=== PATIENT | male | born 1970 | race Caucasian/White ===

== ENCOUNTER 2020-03-09 19:38 | Inpatient (IN) | payer SELFPAY ==
[~2020-03-09] VITALS: Ht 185.4 cm; Wt 106.1 kg
[2020-03-09 20:05] VITALS: Ht 185.4 cm; Wt 106.1 kg
--- NOTE | 2020-03-09 20:30 | NUR ---
PT NOTED TO BE IN LOBBY. PT INSTRUCTED TO GO BACK OUT TO [facility] FOR TRX.
--- NOTE | 2020-03-09 21:00 | NUR ---
PT BROUGHT BACK TO [facility] AFTER STILL BEING FOUND IN LOBBY AND EXPLAINED TO PT AGAIN TO STAY IN [facility] FOR HIS TRX/ORDERS.
--- NOTE | 2020-03-09 23:00 | NUR ---
PT REMINDED TO STAY IN [facility] FOR SAFETY. PT KEEPS GETTING UP AND LEAVING/WANDERING AROUND AND HAVING TO BE REDIRECTED AND REEDUCATED ON PLAN OF CARE.
--- NOTE | 2020-03-09 23:35 | NUR ---
PT OUT TO CT SCAN
--- NOTE | 2020-03-09 23:55 | NUR ---
PT NOTED BY STUART HERRERA TO BE TAKING OFF CLOTHES WITH NO REASON. PT PLACED ON [facility] BED WITH SHEET FOR PRIVACY.
--- NOTE | 2020-03-10 00:44 | NUR ---
LAB AT PATIENT BEDSIDE
--- NOTE | 2020-03-10 01:08 | NUR ---
RT AT CHAIRSIDE
[2020-03-10 01:37] LABS: AMPHETAMINE QUAL UR NONE DETECTED (See below)
[2020-03-10 01:39] LABS: BASOPHIL % 0.4 % (0.2-1.5); PLATELET COUNT 244 x10^3mcL (152-348); RED CELL DISTRIBUTION WIDTH 11.9 % (12.1-16.2)
[2020-03-10 01:41] LABS: CHOLESTEROL/HDL RATIO 4.2
[2020-03-10 01:42] LABS: rbc morphology (normal/abnorm) NORMAL (NORMAL)
[2020-03-10 01:55] LABS: ALBUMIN 3.5 g/dL (3.4-5.0); ALKALINE PHOSPHATASE 91 U/L (46-116); ALT/SGPT 83 U/L (16-63); AST/SGOT 65 U/L (15-37); BILIRUBIN TOTAL 1.13 mg/dL (0.20-1.00); C REACTIVE PROTEIN 2.2 mg/dL (<=0.9); CALCIUM 8.6 mg/dL (8.5-10.1); CARBON DIOXIDE 25.8 mmol/L (21-32); CHLORIDE SERUM 99 mmol/L (98-107); CREATININE SERUM 0.9 mg/dL (0.7-1.3); GFR1 > 60 mL/min; GLUCOSE SERUM 105 mg/dL (74-106); LACTIC DEHYDROGENASE (LDH) 233 U/L (100-190); SODIUM SERUM 135 mmol/L (136-145); TOTAL PROTEIN, SERUM 7.6 g/dL (6.4-8.2)
--- NOTE | 2020-03-10 02:17 | NUR ---
FIRST ENCOUNTER WITH PATIENT. PT BROUGHT IN FROM [facility] FOR C/C OF DIZZINESS, HBP. PER PATIENT HAS BODY ACHES, COUGH, FATIGUE. PT IS A&OX4 AUTHORIZED ME TO SPEAK TO SON OFE. PT DENIES CHEST PAIN,SOB,BLURRED VISION. PT PLACED ON FULL CM. CALL LIGHT WITHIN REACH.
--- NOTE | 2020-03-10 03:09 | NUR ---
PROVIDED UPDATE TO PT'S SON, DURGA ELLIS. SON STATED HE IS WAITING IN 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 SON REQUESTED TO HAVE ADMISSION DOCTOR CALL HIM AT TO DISCUSS POSSIBLE DISCHARGE DATE.
[2020-03-10 04:33] LABS: microscopic required? NO
[2020-03-10 04:49] LABS: urine erythrocyte NEGATIVE (NEGATIVE)
--- NOTE | 2020-03-10 05:00 | NUR ---
PT ASKED TO HOLD OFF ON 0400 POTASSIUM DOSE FOR LATER.
--- NOTE | 2020-03-10 06:12 | NUR ---
PT ASKED TO HOLD OFF ON POTASSIUM DOSE FROM 0400 FOR LATER. PT STATED HE IS NOT REFUSING, "JUST NOT READY FOR THEM YET".
[2020-03-10 06:13] VITALS: BP 135/90
--- NOTE | 2020-03-10 07:43 | NUR ---
CALLED PT'S SON DURGA AND ASKED IF HIS FATHER (PT) WAS WITH HIM. MADE HIM AWARE WE NEED TO REMOVE THE IV LINE IF PT WANTS TO LEAVE AMA. DURGA VERBALIZED UNDERSTANDING AND SAID HE WOULD TRY TO FIND HIS DAD BUT THAT HE IS DRIVING AN 18WHEEL BIG RIG SO IT WILL BE HARD FOR HIM TO FIND PARKING IN THE AREA TO LOOK FOR HIS FATHER.
--- NOTE | 2020-03-10 08:14 | NUR ---
CALLED [facility], SPOKE WITH ALDA. PROVIDED HER WITH A DESCRIPTION, PT WEARING LIGHT BLUE JEANS, SOLIMAN BUTTON UP SHIRT, BLACK JACKET, NGUYEN OR [employer]AN [employer] BASEBALL CAP. LAST SEEN APPROX [phone] MINS AGO USING OUR PHONE IN H[place]WAY.
[2020-03-10 10:13] LABS: AMPHETAMINE QUAL UR NONE DETECTED (See below)
== END 2020-03-10 08:14 | disposition left against medical advice (07) | DRG 177 ==
LOC: ED 19:38 → DU 03-10 00:22
PROVIDERS: Emergency Medicine; Internal Medicine; ADMIT Family Medicine; ATTEND Family Medicine
DX: U07.1 COVID-19 (principal); J12.81 Pneumonia due to SARS-associated coronavirus; G92 Toxic encephalopathy; I16.1 Hypertensive emergency; I10 Essential (primary) hypertension; T50.901A Poisoning by unspecified drugs, medicaments and biological substances, accidental (unintentional), initial encounter; Y92.89 Other specified places as the place of occurrence of the external cause; Z53.29 Procedure and treatment not carried out because of patient's decision for other reasons
CPT/HCPCS: 36600; 83880; 85378; 87804; G0378; G0480; J0456; J0696; J7030; J7050; J7060; U0003